=== PATIENT | female | born 1980 | race Caucasian/White ===

== ENCOUNTER 2018-08-30 08:22 | Outpatient (CLI) | payer OTHER | END 2018-08-30 08:28 | disposition home or self-care (01) | LOC: SONOGRAMA 08:22 | DX: R22.1 Localized swelling, mass and lump, neck (principal) ==

== ENCOUNTER 2020-03-13 11:53 | Inpatient (IN) | payer OTHER ==
[~2020-03-13] VITALS: Ht 162.6 cm; Wt 66.7 kg
[2020-03-16] MEDS ORDERED: PRENATAL CAPLE1 EAC1 PO (11:30)
== END 2020-03-18 17:11 | disposition home or self-care (01) | DRG 788 ==
LOC: LDR 03-16 09:35 → OB/GYN 03-16 09:35
PROVIDERS: ADMIT Obstetrics & Gynecology
PROC: 4A1HXFZ Monitoring of Products of Conception, Cardiac Rhythm, External Approach (ICD-10-PCS; 2020-03-16)
PROC: 3E033VJ Introduction of Other Hormone into Peripheral Vein, Percutaneous Approach (ICD-10-PCS; 2020-03-16)
PROC: 10D00Z1 Extraction of Products of Conception, Low, Open Approach (ICD-10-PCS; principal; 2020-03-16 16:30)
DX: O64.1XX0 Obstructed labor due to breech presentation, not applicable or unspecified (principal); Z3A.36 36 weeks gestation of pregnancy; Z37.0 Single live birth

== ENCOUNTER 2021-04-30 08:00 | Outpatient (CLI) | payer OTHER ==
[~2021-04-30 08:00] MED LIST: PRENATAL CAPLE1 EAC1 PO
== END 2021-04-30 08:30 | disposition home or self-care (01) ==
LOC: PPH VACUNA 08:00
DX: Z23 Encounter for immunization (principal)

== ENCOUNTER 2021-05-21 08:00 | Outpatient (CLI) | payer OTHER | END 2021-05-21 08:30 | disposition home or self-care (01) | LOC: PPH VACUNA 08:00 | DX: Z23 Encounter for immunization (principal) ==

== ENCOUNTER 2022-07-21 08:00 | Outpatient (CLI) | payer OTHER | END 2022-07-21 08:02 | disposition home or self-care (01) | LOC: NUCLEAR 08:00 | PROVIDERS: ATTEND Internal Medicine Cardiovascular Disease | DX: I10 Essential (primary) hypertension (principal); Z88.6 Allergy status to analgesic agent ==